=== PATIENT | female | born 1990 | race African-American/Black ===

== ENCOUNTER 2018-04-29 02:00 | Emergency (ER) | payer OTHER ==
[~2018-04-29] VITALS: Ht 152.4 cm; Wt 59.9 kg
[~2018-04-29 02:00] MED LIST: ALBUTEROL2.5 MG/0.5 IH; ALBUTEROL2.5 MG/31 INH; AZITHROMYCIN 2250 MG PO; CLEOCIN HCL300 MG PO; DUONEB 2.5-0.5 M3 ML; GUAIFEN-CODEINE10 ML PO; MIRALAX17 GM PO; NORCO 5-325 TA1 EACH PO; PERCOCET 10-321 EACH PO; TRAMADOL 50 MG50 MG PO; TRINATE TABLET1 TAB PO; TYLENOL325 MG PO; ULTRAM ER100 MG PO; VENTOLIN HFA 1818 GM INH; VICODIN HP 10-1 EAC1 PO; ZOFRAN ODT4 MG PO
[2018-04-29 02:46] LABS: EOSINOPHILS 3.3 % (0.0-3.0); HEMATOCRIT 37.1 % (37.0-47.0); HEMOGLOBIN 12.5 gm/dL (12.0-15.0); LYMPHOCYTES 29.3 % (24.0-44.0); MCH 28.8 pg (26.0-34.0); MCHC 33.6 g/dL (28.0-37.0); MCV 85.8 fL (80.0-100.0); MONOCYTES 5.6 % (1.0-8.0); PLATELET COUNT 288 thou/uL (150-400); POLYS 60.8 % (36.0-66.0); RBC 4.33 mil/uL (4.20-5.00); RDW 16.6 % (10.5-14.5); WBC 8.3 thou/uL (4.0-11.0)
[2018-04-29 02:52] LABS: ANION GAP 8 mmol/L (7-16); BUN 13 mg/dL (7-18); CALCIUM 9.2 mg/dL (8.5-10.1); CHLORIDE 102 mmol/L (98-107); CO2 30 mmol/L (21-32); CREATININE 0.9 mg/dL (0.6-1.0); GLUCOSE 99 mg/dL (74-106); POTASSIUM 3.8 mmol/L (3.5-5.1); SODIUM 140 mmol/L (136-145)
[2018-04-29 02:58] LABS: ALBUMIN 3.6 g/dL (3.4-5.0); DIRECT BILIRUBIN < 0.1 mg/dL (<0.1-0.3); LIPASE 84 U/L (73-393); SGOT 20 U/L (15-37); SGPT 17 U/L (30-65); TOTAL BILIRUBIN 0.2 mg/dL (<0.1-1.0); TOTAL PROTEIN 8.8 g/dL (6.4-8.2)
[2018-04-29 03:58] LABS: URINE BILIRUBIN NEGATIVE (Negative); URINE BLOOD NEGATIVE (Negative); URINE CLARITY CLEAR; URINE COLOR YELLOW; URINE GLUCOSE-RANDOM* NEGATIVE (Negative); URINE KETONES NEGATIVE (Negative); URINE LEUKOCYTES-REFLEX NEGATIVE (Negative); URINE NITRITE-REFLEX NEGATIVE (Negative); URINE PROTEIN (DIPSTICK) NEGATIVE (Negative)
[2018-04-29] MEDS ORDERED: ZOFRAN ODT4 MG PO (04:02)
[2018-04-29 04:19] VITALS: BP 119/81
== END 2018-04-29 04:20 | disposition home or self-care (01) ==
LOC: ER 02:00
PROVIDERS: Emergency Medicine
DX: R11.0 Nausea (principal); G43.909 Migraine, unspecified, not intractable, without status migrainosus; J45.909 Unspecified asthma, uncomplicated; Z98.890 Other specified postprocedural states; F17.210 Nicotine dependence, cigarettes, uncomplicated; Z88.0 Allergy status to penicillin; Z88.6 Allergy status to analgesic agent; Z88.8 Allergy status to other drugs, medicaments and biological substances

== ENCOUNTER 2021-02-04 16:28 | Emergency (ER) | payer OTHER ==
[~2021-02-04] VITALS: Ht 152.4 cm; Wt 68.0 kg
[2021-02-04] MEDS ORDERED: DECADRON6 MG PO (18:22)
[2021-02-04] MEDS ORDERED: PROAIR HFA8.5 GM INH (18:22)
[2021-02-04 18:56] VITALS: BP 99/63
--- NOTE | 2021-02-04 22:59 | NUR ---
LAB CALLED WITH POSITIVE COVID RESULT.
== END 2021-02-04 18:56 | disposition home or self-care (01) ==
LOC: ER 16:28
PROVIDERS: Physician Assistant
DX: U07.1 COVID-19 (principal); G43.909 Migraine, unspecified, not intractable, without status migrainosus; J45.909 Unspecified asthma, uncomplicated; F17.210 Nicotine dependence, cigarettes, uncomplicated; Z98.890 Other specified postprocedural states; Z79.891 Long term (current) use of opiate analgesic; Z79.899 Other long term (current) drug therapy; Z79.51 Long term (current) use of inhaled steroids; Z88.0 Allergy status to penicillin; Z88.6 Allergy status to analgesic agent; Z88.8 Allergy status to other drugs, medicaments and biological substances